=== PATIENT | female | born 1985 | race Caucasian/White ===

== ENCOUNTER 2019-08-07 16:04 | Emergency (ER) | payer BC, OTHER ==
[2019-08-07 16:59] LABS: ABS Eosinophils 0.2 10^3/ul (0-0.6); ABS Lymphocytes 2.2 10^3/ul (1.0-4.8); ABS Monocytes 0.4 10^3/ul (0-0.8); ABS Neutrophils 4.6 10^3/ul (1.5-7.7); Eosinophil % 3.2 %; Hematocrit 41 % (35-47); Lymphocyte % 29.7 %; Mean Corpuscular HGB Conc 35 g/dL (31-36); Mean Corpuscular Hemoglobin 31 pg (27-31); Mean Corpuscular Volume 90 fL (80-97); Mean Platelet Volume 7.2 fL (7.4-10.4); Nucleated Red Blood Cells % 0.1; Platelet Count 399 10^3/uL (150-450); Red Blood Count 4.52 10^6 /uL (3.70-4.87); Red Cell Distribution Width 12 % (10-15); White Blood Count 7.4 10^3/uL (3.5-10.8)
[2019-08-07 17:13] LABS: Albumin/Globulin Ratio 1.5 (1-3); BUN/Creatinine Ratio 20.9 (8-20); Calcium 9.3 mg/dL (8.6-10.3); EGFR African American 121.2 (>60); EGFR Non-African American 100.2 (>60); Globulin 2.7 g/dL (2-4); Potassium 3.6 mmol/L (3.5-5.0); Total Bilirubin 0.3 mg/dL (0.2-1.0); Total Protein 6.7 g/dL (6.4-8.9)
[2019-08-07 17:16] LABS: INR 1.09 (0.82-1.09)
--- NOTE | 2019-08-07 18:11 | ED ---
HPI Chest Pain - HPI Summary HPI Summary: Patient complains of intermittent left shoulder pain radiating down left arm 1 month, also complains of palpitations and left-sided chest discomfort starting today. Patient also states left hand felt alternatively cold and warm today. Patient also states she has had elevated blood pressure up to SBP 170s over the past week. Currently taking medication, states baseline SBP 150s. She states she called PCP today and was told to come to the ED. Denies recent decreasing endurance or shortness of breath with exertion. Denies initial traumatic event for left shoulder pain, fever, cough, sore throat, SOB, N/V/D, abdominal pain, change in urine, change in BM. Medical history is PCO as, PTSD, anxiety, migraines, HTN. Didn't denies cardiac history. Father has history of CHF. Vision is positive smoker. Denies caffeine, no supplements, energy drinks, recreational drug use. Denies arm and supplements, unilateral leg pain, recent trauma or surgery, recent long travel, history of cancer, history of hemoptysis , current , prior history of blood clots. - History of Current Complaint Chief Complaint: EDChestPainROMI Time Seen by Provider: 08/07/19 17:13 Hx Obtained From: Patient Hx Last Menstrual Period: several months ago. no cycles with murena Onset/Duration: Started Days Ago Timing: Intermittent Initial Severity: Moderate Current Severity: Moderate Pain Intensity: 5 Pain Scale Used: 0-10 Numeric Chest Pain Location: Left Anterior Chest Pain Radiates To:: Shoulder, Arm Character: Pounding Aggravating Factor(s): Nothing Alleviating Factor(s): Nothing Associated Signs and Symptoms: Positive: Chest Pain, Palpitations - Risk Factors Pulmonary Embolism Risk Factors: Smoking - Allergy/Home Medications Allergies/Adverse Reactions: Allergies Allergy/AdvReac Type Severity Reaction Status Date / Time No Known Allergies Allergy Verified 04/23/19 12:16 Home Medications: Home Medications Metoprolol Succinate XL TAB* [Toprol XL TAB*] 50 mg PO DAILY 08/07/19 [History Confirmed 08/07/19] PMH/Surg Hx/FS Hx/Imm Hx Endocrine/Hematology History: Denies: Hx Anticoagulant Therapy, Hx Diabetes, Hx Thyroid Disease Cardiovascular History: Reports: Hx Hypertension Denies: Hx Pacemaker/ICD Respiratory History: Denies: Hx Asthma, Hx Chronic Obstructive Pulmonary Disease (COPD) GI History: Denies: Hx Ulcer History: Reports: Hx Renal Disease Sensory History: Denies: Hx Hearing Aid Opthamlomology History: Denies: Hx Eye Prosthesis EENT History: Denies: Hx Deafness Psychiatric History: Reports: Hx Panic Disorder - ATTACKS - Surgical History Surgery Procedure, Year, and Place: D&C. WISDOM TEETH Infectious Disease History: No Infectious Disease History: Denies: Hx Clostridium Difficile, Hx Hepatitis, Hx Human Immunodeficiency Virus (HIV), Hx of Known/Suspected MRSA, Hx Shingles, Hx Tuberculosis, Traveled Outside the [place] in Last 30 Days - Family History Known Family History: Positive: Non-Contributory - Social History Alcohol Use: Occasionally Substance Use Type: Reports: None Smoking Status (MU): Light Every Day Tobacco Smoker Review of Systems Constitutional: Negative Eyes: Negative ENT: Negative Positive: Palpitations, Chest Pain Respiratory: Negative Gastrointestinal: Negative Genitourinary: Negative Musculoskeletal: Other Skin: Negative Neurological: Negative Psychological: Normal All Other Systems Reviewed And Are Negative: Yes Physical Exam - Summary Physical Exam Summary: Patient moves left upper extremity freely without indication of pain. No indication of pain with palpation of left shoulder, left upper extremity. PMS intact distally. Wall Taper strength normal compared to right. No erythema, ecchymosis, deformity, swelling noted to left upper extremity or shoulder. Chest nontender to palpation. Patient states sensation of cold ain left upper extremity when it hangs down, however there is no change in warmth of skin of left upper extremity during this time per physical exam. Triage Information Reviewed: Yes Vital Signs On Initial Exam: Initial Vitals Temp Pulse Resp BP Pulse Ox 96.5 F 84 20 158/111 99 08/07/19 16:13 08/07/19 16:13 08/07/19 16:13 08/07/19 16:13 08/07/19 16:13 Vital Signs Reviewed: Yes Appearance: Positive: Well-Appearing Skin: Positive: Warm Head/Face: Positive: Normal Head/Face Inspection Eyes: Positive: Normal ENT: Positive: Normal ENT inspection Neck: Positive: Supple Respiratory/Lung Sounds: Positive: Clear to Auscultation Cardiovascular: Positive: Normal Abdomen Description: Positive: Nontender Musculoskeletal: Positive: Normal Neurological: Positive: Normal Psychiatric: Positive: Normal AVPU Assessment: Alert - Buffy Coma Scale Best Eye Response: 4 - Spontaneous Best Motor Response: 6 - Obeys Commands Best Verbal Response: 5 - Oriented Coma Scale Total: 15 Procedures - Sedation Patient Received Moderate/Deep Sedation with Procedure: No Diagnostics - Vital Signs Vital Signs Temp Pulse Resp BP Pulse Ox 08/07/19 17:40 24 142/95 08/07/19 17:37 65 08/07/19 17:10 73 21 147/95 98 08/07/19 16:13 96.5 F 84 20 158/111 99 - Laboratory Lab Results: Lab Results 08/07/19 08/07/19 08/07/19 Range/Units 16:38 16:38 16:38 WBC 7.4 (3.5-10.8) 10^3/uL RBC 4.52 (3.70-4.87) 10^6 /uL Hgb 14.0 (12.0-16.0) g/dL Hct 41 (35-47) % MCV 90 (80-97) fL MCH 31 (27-31) pg MCHC 35 (31-36) g/dL RDW 12 (10-15) % Plt Count 399 (150-450) 10^3/uL MPV 7.2 L (7.4-10.4) fL Neut % (Auto) 61.7 % Lymph % (Auto) 29.7 % Bulloch % (Auto) 5.0 % Eos % (Auto) 3.2 % Baso % (Auto) 0.4 % Absolute Neuts (auto) 4.6 (1.5-7.7) 10^3/ul Absolute Lymphs (auto) 2.2 (1.0-4.8) 10^3/ul Absolute Monos (auto) 0.4 (0-0.8) 10^3/ul Absolute Eos (auto) 0.2 (0-0.6) 10^3/ul Absolute Basos (auto) 0.0 (0-0.2) 10^3/ul Absolute Nucleated RBC 0.0 10^3/ul Nucleated RBC % 0.1 INR (Anticoag Therapy) 1.09 (0.82-1.09) Sodium 140 (135-145) mmol/L Potassium 3.6 (3.5-5.0) mmol/L Chloride 105 (101-111) mmol/L Carbon Dioxide 30 (22-32) mmol/L Anion Gap 5 (2-11) mmol/L BUN 14 (6-24) mg/dL Creatinine 0.67 (0.51-0.95) mg/dL Est GFR ( Amer) 121.2 (>60) Est GFR (Non-Af Amer) 100.2 (>60) BUN/Creatinine Ratio 20.9 H (8-20) Glucose 119 H (70-100) mg/dL Calcium 9.3 (8.6-10.3) mg/dL Total Bilirubin 0.30 (0.2-1.0) mg/dL AST 18 (13-39) U/L ALT 28 (7-52) U/L Alkaline Phosphatase 68 (34-104) U/L Troponin I 0.00 (<0.04) ng/mL Total Protein 6.7 (6.4-8.9) g/dL Albumin 4.0 (3.2-5.2) g/dL Globulin 2.7 (2-4) g/dL Albumin/Globulin Ratio 1.5 (1-3) Result Diagrams: 08/07/19 16:38 08/07/19 16:38 Lab Statement: Any lab studies that have been ordered have been reviewed, and results considered in the medical decision making process. Chest Pain Course/Dx - Course Course Of Treatment: Patient complains of intermittent left shoulder pain radiating down left arm 1 month, also complains of palpitations and left-sided chest discomfort starting today. Patient also states left hand felt alternatively cold and warm today. Patient also states she has had elevated blood pressure up to SBP 170s over the past week. Currently taking medication, states baseline SBP 150s. She states she called PCP today and was told to come to the ED. Denies recent decreasing endurance or shortness of breath with exertion. Denies initial traumatic event for left shoulder pain, fever, cough, sore throat, SOB, N/V/D, abdominal pain, change in urine, change in BM. Medical history is PCO as, PTSD, anxiety, migraines, HTN. Didn't denies cardiac history. Father has history of CHF. Vision is positive smoker. Denies caffeine, no supplements, energy drinks, recreational drug use. Denies hormone supplements, unilateral leg pain, recent trauma or surgery, recent long travel, history of cancer, history of hemoptysis, current , prior history of blood clots. History of palpitations and chest pain with anxiety. Initial elevated blood pressure resolved to baseline SBP 150s. Vital signs within normal limits. Labs unremarkable. EKG sinus rhythm, rate of 76, no prior EKG on file. PERC NEG. negative. Patient advised to follow-up with orthopedics for left shoulder pain. Advised to follow up with cardiology for recurrent palpitations. Advised to follow-up with primary care for further evaluation of possible increase in hypertension. - Diagnoses Provider Diagnoses: Shoulder pain, Arm paresthesia, left, Palpitations Discharge ED - Sign-Out/Discharge Documenting (check all that apply): Patient Departure - Discharge Plan Condition: Stable Disposition: HOME Patient Education Materials: Heart Palpitations (ED), Paresthesia (ED), Shoulder Pain (ED) Referrals: Conchita Galarza MD [Primary Care Provider] - Ghassan Yanes MD [Medical Doctor] - Kash Garcia MD [Medical Doctor] - Additional Instructions: Alternate ibuprofen 600 mg with Tylenol 650 mg every 3 hours as needed for left shoulder and arm pain. Follow-up with primary care for management of hypertension. Follow up with cardiology Dr Yanes for further evaluation of palpitations. Follow-up with orthopedics Dr. Camacho for left shoulder pain radiating down left arm. - Billing Disposition and Condition Condition: STABLE Disposition: Home - Attestation Statements Provider Attestation: I was available for consult. This patient was seen by the [facility]YANT. The patient was not presented to, seen by, or examined by me. Celestino Adame MD
[2019-08-07 18:21] VITALS: BP 152/95
== END 2019-08-07 18:22 | disposition home or self-care (01) ==
LOC: ED 16:04
DX: M25.512 Pain in left shoulder (principal); R20.2 Paresthesia of skin; R00.2 Palpitations; F41.9 Anxiety disorder, unspecified; F43.10 Post-traumatic stress disorder, unspecified; R94.31 Abnormal electrocardiogram [ECG] [EKG]
CPT/HCPCS: 36415; 80053; 84484; 85025; 85610; 93005; 99282

== ENCOUNTER 2019-11-03 12:14 | Emergency (ER) | payer BC ==
[2019-11-03 12:44] VITALS: BP 125/88
--- NOTE | 2019-11-03 13:00 | UC ---
Psychiatric Complaint HPI - HPI Summary HPI Summary: patient had difficulty backing out of driveway this am on way to work which precipitated a "panic attack". she began yelling and breathing rapidly. within minutes her fingers on both hands started to spasm and she couldn't bend them. Her co-worker suggested she come to [facility] to be checked she reports a long history of similar symps after panic attack and finger spasm resolves w/o treatment. She cane because work "made her" - History Of Current Complaint Chief Complaint: UCUpperExtremity Stated Complaint: PANIC ATTACK Time Seen by Provider: 11/03/19 12:49 Hx Obtained From: Patient Hx Last Menstrual Period: ?: No Onset/Duration: Sudden Onset Timing: Constant Severity Initially: Severe Severity Currently: Moderate Character: Anxious Aggravating Factor(s): Recent Stress Alleviating Factor(s): Other - time Associated Signs And Symptoms: Negative - Allergies/Home Medications Allergies/Adverse Reactions: Allergies Allergy/AdvReac Type Severity Reaction Status Date / Time No Known Allergies Allergy Verified 11/03/19 12:44 Home Medications: Home Medications FLUoxetine CAP* [PROzac CAP*] 20 mg PO DAILY 11/03/19 [History Confirmed ] Fluticasone NASAL SPRAY 50MCG* [Flonase NASAL SPRAY 50MCG*] 2 spray BOTH NARES DAILY 11/03/19 [History Confirmed 11/03/19] Lisinopril TAB* [Prinivil TAB*] 10 mg PO DAILY 11/03/19 [History Confirmed 11/03] PMH/Surg Hx/FS Hx/Imm Hx Previously Healthy: Yes Cardiovascular History: Hypertension Psychological History: Anxiety, Depression Other History Of: Negative For: Anticoagulant Therapy - Surgical History Surgical History: Yes Surgery Procedure, Year, and Place: D&C. 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 Negative: Shortness Of Breath Cardiovascular: Positive: Negative. Negative: Palpitations Musculoskeletal: Positive: Other: - finger spasms Neurological: Positive: Negative. Negative: Headache Psychological: Positive: Anxious Is Patient Immunocompromised?: No Physical Exam Triage Information Reviewed: Yes Appearance: Well-Appearing, No Pain Distress, Obese Vital Signs: Initial Vital Signs Temp 98.0 F 11/03/19 12:39 Pulse 73 11/03/19 12:39 Resp 16 11/03/19 12:39 BP 125/88 11/03/19 12:39 Pulse Ox 100 11/03/19 12:39 Vital Signs Reviewed: Yes Respiratory Exam: Normal Respiratory: Positive: Lungs clear Cardiovascular Exam: Normal Cardiovascular: Positive: RRR, No Murmur, Pulses Normal Musculoskeletal: Positive: Other: - she has carpal spasm bilateral fingers - resolved before end of exam Neurological Exam: Normal Psychological Exam: Normal Psychological: Positive: Other: - calm during exam Psych Complaint Course/Dx - Differential Dx/Diagnosis Differential Diagnosis/HQI/PQRI: Anxiety, Other - panic attack Provider Diagnosis: Panic attack Discharge ED - Sign-Out/Discharge Documenting (check all that apply): Patient Departure All imaging exams completed and their final reports reviewed: No Studies - Discharge Plan Condition: Improved Disposition: HOME Patient Education Materials: Panic Attack (ED) Forms: *Work Release Referrals: Conchita Galarza MD [Primary Care Provider] - 2 Days (for recheck) Additional Instructions: Try to breath into a paper bag when you have a opanic attack to help avoid finger spasm explore over the counter anxiety relief supplements as we discussed suggest counseling when you are ready - Billing Disposition and Condition Condition: IMPROVED Disposition: Home - Attestation Statements Provider Attestation: This patient was not seen by me. I was available for consult. Chart reviewed. JACQUELINE
== END 2019-11-03 13:25 | disposition home or self-care (01) ==
LOC: UCEAST 12:14
DX: F41.0 Panic disorder [episodic paroxysmal anxiety] (principal); I10 Essential (primary) hypertension; F17.290 Nicotine dependence, other tobacco product, uncomplicated; Z79.899 Other long term (current) drug therapy
CPT/HCPCS: 99211; G0463